=== PATIENT | male | born 1940 | race Hispanic/Latino ===

== ENCOUNTER 2019-01-16 05:58 | Day surgery (SDC) | payer OTHER ==
[2019-01-16] MEDS ORDERED: NACL 0.9% 1000 ML 1,000 ML IV SCH (08:00)
[2019-01-16] MEDS ORDERED: WATER FOR IRRIG STERILE IR ONE (08:01)
[2019-01-16] MEDS ORDERED: WATER FOR IRRIG STERILE ONE (08:02)
--- NOTE | 2019-01-16 08:37 | Procedure Note ---
Date of procedure: 01/16/19 Pre-op diagnosis: Colon Polyp Screening/H/O Colon Cancer and Partial Colon Resection Post-op diagnosis: other (Partial colon Resection/No Colon Polyps noted/ No diverticular disease noted) Procedure: Colonoscopy Anesthesia: MAC Surgeon: ANA MEHTA Estimated blood loss: none Pathology: none Condition: stable Disposition: same day (Resume home medication and follow up in 1 to 2 weeks ([phone]).)
[2019-01-16 09:02] VITALS: BP 127/69
--- NOTE | 2019-01-16 09:02 | Operative Report ---
PROCEDURE: Colonoscopy. INDICATION FOR PROCEDURE: A 78-year-old white male with an underlying history of COPD and history of colon cancer for which he has had partial colon resection done in the past, but did not require any chemotherapy or radiation treatment. The patient has come for a repeat colonoscopy to be done as part of colon polyp screening. He wanted to have the colonoscopy done without sedation because of his underlying history of COPD. He states that he has previously had 2 colonoscopies done without sedation. DESCRIPTION OF PROCEDURE: The procedure was done without sedation after getting informed consent. Initial rectal exam was unremarkable. Instrument was passed through the rectum onto the cecum, which was identified with ileocecal valve and the appendiceal orifice. Visualization was fair to good. The cecum, ascending colon, transverse colon showed normal mucosa. There was a small part of the left colon remaining. The rest was removed as part of partial colon resection. The anastomotic site appeared to be good and the rectum showed minor internal hemorrhoid on the retroverted view. There were no biopsies done and no complications associated with the procedure. ASSESSMENT: Colon polyp screening, history of colon cancer. No colon polyps noted. Partial colon resection. Minor internal hemorrhoid. No diverticular disease noted. There was no bleeding associated with the procedure. No complications associated with the procedure. Procedure was done in the GI lab in the presence and with the assistance of the GI lab team, which included Sadaf CEBALLOS as well as eCcy velazquez. The patient will be asked to follow up in the office in 1-2 weeks' time. JOB# [id number] CHERELLE/CHEYENNE
== END 2019-01-16 05:59 | disposition home or self-care (01) ==
LOC: GIO 05:58
DX: Z12.11 Encounter for screening for malignant neoplasm of colon (principal); K64.8 Other hemorrhoids; J44.9 Chronic obstructive pulmonary disease, unspecified; Z85.068 Personal history of other malignant neoplasm of small intestine; Z93.3 Colostomy status; Z88.0 Allergy status to penicillin; Z88.2 Allergy status to sulfonamides; Z79.899 Other long term (current) drug therapy; Z96.649 Presence of unspecified artificial hip joint; Z98.890 Other specified postprocedural states; Z88.8 Allergy status to other drugs, medicaments and biological substances